=== PATIENT | female | born 2000 | race Caucasian/White ===

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

== ENCOUNTER 2022-04-14 01:00 | Emergency (ER) | payer OTHER ==
[~2022-04-14] VITALS: Ht 152.4 cm; Wt 57.2 kg
[~2022-04-14 01:00] MED LIST changes: -DM H5SYR PO; +PROM473S5 PO
[2022-04-14 01:15] VITALS: BP 113/69
--- NOTE | 2022-04-14 01:21 | NUR ---
PT TAKEN TO BED 7
[2022-04-14 01:47] LABS: BASOPHILS % (AUTO) 0.6 % (0.0-2.0); EOSINOPHILS % (AUTO) 0.7 % (0.0-4.0); HEMATOCRIT 38.3 % (36-48); LYMPHOCYTES # (AUTO) 1.7 K/uL (2.5-16.5); LYMPHOCYTES % (AUTO) 32.1 % (20.5-51.1); MEAN CORPUSCULAR HEMOGLOBIN 29 pg (27-31); MEAN CORPUSCULAR HGB CONC 34 g/dL (33-37); MEAN CORPUSCULAR VOLUME 85.6 fL (80-94); MONOCYTES # (AUTO) 0.5 K/uL (0.8-1.0); MONOCYTES % (AUTO) 8.4 % (1.7-9.3); NEUTROPHILS # (AUTO) 3.2 K/uL (1.8-7.7); NEUTROPHILS % (AUTO) 58.2 % (42.2-75.2); PLATELET COUNT (AUTO) 191 K/uL (140-450); RED BLOOD CELL COUNT(AUTO) 4.48 MIL/uL (4.20-5.40); RED CELL DISTRIBUTION WIDTH 13.2 % (11.6-13.7); WHITE BLOOD COUNT (AUTO) 5.4 K/uL (4.5-11.0)
--- NOTE | 2022-04-14 02:00 | NUR ---
21/F BIB MOTHER C/C SUICIDAL IDEATION X2 DAYS. MERON STATED "I JUST BEEN FEELING REALLY STRESSED AND DEPRESSED X1 WEEK AGO BECAUSE I'VE BEEN STAYING OVER AT MY BFS MOTHERS HOUSE. I JUST FEEL LIKE I'M NOT GOOD ENOUGH FOR HIM. AND TODAY HE CAME OVER AND TOLD ME SOMETHING THAT MADE ME FEEL BAD AND NOW I FEEL LIKE I COULD REALLY HURT MYSELF." PATIENT STATED "I DONT HAVE A PLAN RIGHT NOW, BUT IF I DID I WOULD CUT MYSELF, DAYSI DONE IT BEFORE. I ALSO TRIED TO HANG MYSELF BACK WHEN I WAS 18" MERON STATED THAT DUE TO THE THOUGHTS OF HURTING HERSELF SHE DECIDED TO COME IN AND GET HELP. SHE HAS BEEN OFF HER MEDICATION FOR OVER A YEAR AFTER HER PCP DECREASED AND DISCONTINUED IT. SHE ALSO STOPPED SEEING HER PSYCH ABOUT A YEAR AGO. MERON APPEARS TO BE SAD AND IS CRYING. RR ARE EVEN AND UNLABORED. DOESNT APPEAR TO BE IN ANY DISTRESS. MERON ROOM CLEARNED, AND PLACED ON SAFETY PRECAUTIONS. BED LOW AND LOCKED. CARL SIDE RAILS UP FOR SAFETY. ALL NEEDS MET PMHX DEPRESSION NKA
--- NOTE | 2022-04-14 02:00 | NUR ---
URINE AND SWABS COLLECTED AND WALKED TO LAB.
--- NOTE | 2022-04-14 02:01 | NUR ---
MERON STATED SHE FEELS SAFE HERE AND IS NOT PLANNING TO HURT SELF OR OTHERS AT THIS TIME.
[2022-04-14 02:22] LABS: ALBUMIN 3.8 g/dL (3.4-5.0); ANION GAP 10.7 (8-16); CARBON DIOXIDE 24.3 mmol/L (21-32); CREATININE 0.6 mg/dL (0.6-1.3); TOTAL BILIRUBIN 0.3 mg/dL (0.0-1.0)
[2022-04-14 02:27] LABS: ACETAMINOPHEN < 0.5 ug/ml (10-30); SALICYLATE < 2.8 mg/dL (2.8-20.0)
[2022-04-14 02:30] LABS: APPEARANCE,URINE CLEAR (CLEAR); BILIRUBIN,URINE NEGATIVE (NEGATIVE); BLOOD, URINE NEGATIVE (NEGATIVE); COLOR,URINE YELLOW (YELLOW); LEUKOCYTE ESTERASE ,URINE NEGATIVE (NEGATIVE); NITRITE, URINE NEGATIVE (NEGATIVE); PH,URINE 7.5 (5.0-9.0); UGLUCOSE NEGATIVE (NEGATIVE)
--- NOTE | 2022-04-14 02:35 | NUR ---
MD GALLEGOS AT BEDSIDE ASSESSING PATIETN
[2022-04-14 02:40] LABS: BARBITURATE, URINE NEGATIVE ng/ml (NEG <=200); BENZODIAZEPINE, URINE NEGATIVE ng/mL (NEG <=200); CANNABINOID, URINE NEGATIVE ng/mL (NEG <=50); COCAINE, URINE NEGATIVE ng/mL (NEG <=300); OPIATE, URINE NEGATIVE ng/mL (NEG <=2000); PHENCYCLIDINE SCREEN,URINE NEGATIVE ng/mL (NEG <=25)
--- NOTE | 2022-04-14 02:54 | NUR ---
MOTHER AT BEDSIDE
--- NOTE | 2022-04-14 03:30 | NUR ---
MERON STATED SHE FELT SAFE HERE AND DID NOT PLAN ON HURTING SELF OR OTHERS AT THIS TIME. MERON STATED SHE WAS GOING TO REST. OFFERED BLANKETS. BED LOW AND LOCKED. PUT CARL SIDE RAILS UP FOR SAFETY. ALL NEEDS MET.
--- NOTE | 2022-04-14 03:55 | NUR ---
SOC TELEPSYCH INITIATED PER DR. Sara VELAZQUEZ
--- NOTE | 2022-04-14 04:30 | NUR ---
PATIETN RESTING IN BED. RR APPEAR TO BE EVEN AND UNLABORED. ALL NEEDS MET
--- NOTE | 2022-04-14 06:09 | NUR ---
PATIETN SITTING UP IN BED. DOESNT APPEAR TO BE IN DISTRESS. BED LOW AND LOCKED. ALL NEEDS MET AT THIS TIME.
--- NOTE | 2022-04-14 06:31 | NUR ---
MOTHER AT BEDSIDE
--- NOTE | 2022-04-14 06:50 | NUR ---
CALLED SECURITY FOR PATIENTS BELONGINGS FOR MOTHER
--- NOTE | 2022-04-14 06:58 | NUR ---
RETURN CALL FROM [facility], DR. MELENDEZ, WHO SPOKE WITH PRIMARY NURSE Geraldine MCKNIGHT
--- NOTE | 2022-04-14 06:59 | NUR ---
SPOKE WITH DR MELENDEZ AND UPDATED ON MERON STATUS. DR. LECHUGA READY TO TALK TO MERON. REMOVED MOTHER FROM THE ROOM AND PLACED ON VIDEO CHAT.
--- NOTE | 2022-04-14 07:06 | NUR ---
DR. MELENDEZ SPEAKING WITH PT VIA REMOTE COMMUNICATION
--- NOTE | 2022-04-14 07:17 | NUR ---
REPORT GIVEN TO RIKA LEGER. TRANSFER OF CARE.
--- NOTE | 2022-04-14 07:17 | NUR ---
REPORT RECEIVED FROM SE MELÉNDEZ. ASSUMED CARE AT THIS TIME
--- NOTE | 2022-04-14 07:20 | NUR ---
PT AWAKE, SITTING UP IN BED, AND ON TELEPSYCH CALL FOR RE EVALUATION .
--- NOTE | 2022-04-14 07:40 | NUR ---
PT PROVIDED WITH BREAKFAST. PT SITTING UP AND EATING IN BED
--- NOTE | 2022-04-14 07:55 | NUR ---
mom at bedside
--- NOTE | 2022-04-14 08:49 | NUR ---
SECURITY CALLED FOR BELONGINGS
[2022-04-14 08:50] VITALS: BP 113/73
--- NOTE | 2022-04-14 14:32 | NUR ---
Chart checked and completed. The patient's care was reviewed and supervised by Rosa Isela Rodriguez RN.
== END 2022-04-14 08:50 | disposition home or self-care (01) ==
LOC: MED 01:00
DX: R45.851 Suicidal ideations (principal); Z20.822 Contact with and (suspected) exposure to COVID-19; F32.9 Major depressive disorder, single episode, unspecified; K21.9 Gastro-esophageal reflux disease without esophagitis; Z79.899 Other long term (current) drug therapy
CPT/HCPCS: 36415; 80053; 80305; 81003; 85025; 87426; 87635; 93005; 99284; C9803; G0480; G0482